=== PATIENT | female | born 1955 | race African-American/Black ===

== ENCOUNTER 2017-01-22 08:57 | Inpatient (IN) | payer MEDICARE ==
[2017-01-10 12:44] VITALS: BMI 41.5
--- NOTE | 2017-01-21 10:01 | HP ---
[facility] - Chief Complaint Chief Complaint: left knee pain - Past Medical History Allergies/Adverse Reactions: Allergies Allergy/AdvReac Type Severity Reaction Status Date / Time No Known Drug Allergies Allergy Verified 01/10/17 12:36 - Current Medications Current Medications: Home Medications Medication Instructions Recorded Amlodipine Besylate [Norvasc] 10 mg PO DAILY 02/01/13 Hydrochlorothiazide [Hctz] 25 mg PO ASDIR 02/01/13 Labetalol HCl [Normodyne] 100 mg PO BID 02/01/13 Clonazepam [KlonoPIN] 0.5 mg PO ASDIR PRN 12/04/16 Satellite Physical Exam - Physical Examination General Appearance: Well Nourished, Well Developed, Alert & Oriented x3 ENT: Clear Lung: Normal air movement Heart: Regular rate & rhythm Extremities: Other (left knee-+ sweling, + ttp ,dec rom ,nvi xrays show severe tricompartmental djd) Neurological: Intact, Alert, Oriented Satellite Impression/Plan - Impression/Plan Impression: left knee djd Operative Procedure: left meliton tkr Date to be Performed: 01/22/17
[2017-01-22] MEDS ORDERED: oxyCODONE HCL 10 MG SUSTAINED ACTING TABLET PO ONE (09:14)
[2017-01-22] MEDS ORDERED: CELECOXIB 200 MG CAPSULE PO ONE (09:14)
[2017-01-22] MEDS ORDERED: TRANEXAMIC ACID 1000 MG/10 ML VIAL IVPUSH ONE (09:14)
[2017-01-22] MEDS ORDERED: GABAPENTIN 300 MG CAPSULE (FP) PO ONE (09:14)
[2017-01-22] MEDS ORDERED: CEFAZOLIN 2 GM in DEXTROSE 5%-WATER - 50 ML IVPB ONE (09:14)
[2017-01-22] MEDS ORDERED: SODIUM CHLORIDE 0.9% P/F 10 ML VIAL IJ ONE (10:42)
[2017-01-22] MEDS ORDERED: BUPIVACAINE HCL/PF 0.5% (5MG/ML) 10 ML VIAL ONE (10:42)
[2017-01-22] MEDS ORDERED: MIDAZOLAM HCL 2 MG/2 ML SINGLE DOSE VIAL ONE (10:46)
[2017-01-22] MEDS ORDERED: ONDANSETRON 4 MG/2 ML VIAL IVPUSH PRN (13:38)
[2017-01-22] MEDS ORDERED: oxyCODONE HCL 5 MG TABLET PO PRN (13:38)
[2017-01-22] MEDS ORDERED: ACETAMINOPHEN 325 MG TABLET (FP) PO SCH (13:45)
[2017-01-22] MEDS ORDERED: LACTATED RINGERS SOLUTION 1,000 ML IV SCH ×2 (13:45→14:15)
[2017-01-22] MEDS ORDERED: MAGNESIUM HYDROX 2400MG/30ML ORAL SUSPENSION 30 ML CUP PO PRN (14:02)
[2017-01-22] MEDS ORDERED: MAG HYDROX/AL HYDROX/SIMETH 30 ML UNIT-DOSE CUP PO PRN (14:02)
[2017-01-22] MEDS ORDERED: ONDANSETRON 4 MG/2 ML VIAL IVPB PRN (14:02)
--- NOTE | 2017-01-22 14:05 | OP ---
Operative Note - Note: Operative Date: 01/22/17 (kristian) Pre-Operative Diagnosis: left knee djd Operation: left meliton tkr Post-Operative Diagnosis: Same as Pre-op Surgeon: Yuval Landaverde Group Home Manager: Roscoe Hermosillo Anesthesiologist/NUMERICAL CONTROL MACHINE TOOL OPERATOR: Arthur Romeo Anesthesia: Spinal, Local Specimens Removed: bone fragments Estimated Blood Loss (mls): 50 (tourniquet) Operative Report Dictated: Yes
[2017-01-22] MEDS ORDERED: HYDROCHLOROTHIAZIDE 25 MG TABLET (FP) PO SCH (14:15)
[2017-01-22] MEDS: oxyCODONE HCL 5 MG TABLET PO PRN ×2 (17:07→19:22)
[2017-01-22] MEDS: CEFAZOLIN 2 GM/D5W 50 ML IVPB SCH (20:41)
[2017-01-22] MEDS: LABETALOL HCL 100 MG TABLET (FP) PO SCH (21:17)
[2017-01-22] MEDS: oxyCODONE HCL 10 MG SUSTAINED ACTING TABLET PO SCH (21:17)
[2017-01-22] MEDS: SENNOSIDES/DOCUSATE COMBO (SENNA PLUS) TABLET (UD) PO SCH (21:17)
[2017-01-22] MEDS: GABAPENTIN 300 MG CAPSULE (FP) PO SCH (21:18)
[2017-01-22] MEDS: ACETAMINOPHEN 325 MG TABLET (FP) PO SCH (21:18)
[2017-01-22] MEDS: clonazePAM 0.5 MG TABLET PO PRN (21:18)
[2017-01-23] MEDS: CEFAZOLIN 2 GM/D5W 50 ML IVPB SCH (03:41)
[2017-01-23] MEDS: ACETAMINOPHEN 325 MG TABLET (FP) PO SCH ×4 (03:42→21:08)
[2017-01-23] MEDS: oxyCODONE HCL 5 MG TABLET PO PRN ×2 (05:00→21:05)
--- NOTE | 2017-01-23 08:13 | PN ---
Progress Note (short form) - Note Progress Note: Ortho Pt seen and examined s/p left meliton tkr pod #1 Selected Entries 01/23/17 05:50 Temperature 99.2 F Pulse Rate 104 H Respiratory 20 Rate Blood Pressure 145/54 dressing c/d/i, calf soft, nt rom 0-30, nvi cbc pending a/p PT dvt ppx pain control d/c home tomorrow if stable
[2017-01-23] MEDS: ASPIRIN 325 MG TABLET PO SCH (08:53)
[2017-01-23] MEDS: GABAPENTIN 300 MG CAPSULE (FP) PO SCH ×2 (09:27→21:06)
[2017-01-23] MEDS: amLODIPine BESYLATE 10 MG TABLET (FP) PO SCH (09:28)
[2017-01-23] MEDS: SENNOSIDES/DOCUSATE COMBO (SENNA PLUS) TABLET (UD) PO SCH ×2 (09:28→21:06)
[2017-01-23] MEDS: LABETALOL HCL 100 MG TABLET (FP) PO SCH ×2 (09:28→21:06)
[2017-01-23] MEDS: oxyCODONE HCL 10 MG SUSTAINED ACTING TABLET PO SCH ×2 (09:28→21:06)
[2017-01-23] MEDS: MULTIVITAMINS (DAILY MVI) TABLET (FP) PO SCH (10:00)
[2017-01-23] MEDS: PANTOPRAZOLE 40 MG TABLET (FP) PO SCH (10:53)
--- NOTE | 2017-01-23 11:01 | SPEC ---
DATE OF OPERATION: 01/22/2017 OPERATION: Left total knee replacement with robotic-assisted navigation (MAKOplasty). PREOPERATIVE DIAGNOSIS: Degenerative joint disease, left knee. POSTOPERATIVE DIAGNOSIS: Degenerative joint disease, left knee. SURGEON: Yuval Landaverde M.D. UROLOGY PHYSICIAN ASSISTANT: Fidelia Harrington ANESTHESIA: Regional and spinal. CLOSURE: A Triathlon knee system with a 3 femur, a 3 tibia, an 11 polyethylene, a 38 patella. A number 1 Vicryl fascia, 0 and 2-0 for subcutaneous, 3-0 Monocryl subcuticular with skin glue for skin, 4-0 undyed Vicryl for pin sites. ESTIMATED BLOOD LOSS: Negligible. TOURNIQUET TIME: Approximately 80 minutes. COMPLICATIONS: None CONDITION: To recovery room in stable condition. DESCRIPTION OF PROCEDURE: Patient was taken to the operating room on January 22, 2017. Regional and spinal anesthesia were administered by the anesthesiologist. IV antibiotics and TXA were administered prophylactically prior to the case. A well-padded pneumatic tourniquet was placed on the left proximal thigh. The left lower extremity was prepped and draped in the usual sterile fashion. An approximately 12-cm midline incision centered over the patella was incised. Hemostasis was achieved with Bovie cautery. Sharp dissection was carried down to the level of the extensor mechanism the procedure. The medial parapatellar arthrotomy was then performed. The patella was inverted and the knee was flexed up to 90 degrees. Subperiosteal dissection was performed on the anteromedial proximal tibia until the knee was able to be brought forward. This was facilitated by taking the ACL, the PCL, and the medial and lateral menisci. A checkpoint was malleted into the medial femoral condyle and into the anteromedial proximal tibia. Through two small stab incisions in the mid femur and two in the mid tibia, two bicortical pins were drilled, achieving excellent height. Two of these pins were attached to the navigation arrays. The knee was then registered with the navigation device by rotating the hip to ascertain the center of rotation of the hip with points on both the medial and lateral malleoli and multiple points on both the femur and on the tibia. Excellent registration was confirmed by "popping the bubbles". At this time, the osteophytes on the edges of the proximal tibia both medially and laterally, as well as on the medial lateral femoral condyles underneath the collateral ligaments were debrided. The knee was stressed in extension and in flexion to confirm good gaps. The virtual positions of the components were then optimized in order to have a balanced knee, both in extension and in 90 degrees of flexion. The sizes of the components were also optimized to get good coverage over both the tibia and the femur and to produce equal gaps in extension and flexion with the appropriate amount of external rotation of the femur, the appropriate amount of flexion of the femoral component and the appropriate slope on the tibial component. At this time, the robot was brought into the field and registered. The robot was used to cut the proximal tibia and to make all the cuts on the distal femur. The bone was then removed. A spacer block in extension and flexion was used to confirm equal balancing of the component in both extension and 90 degrees of flexion. The box for the posterior cruciate sacrificing component was then performed and a trial component on the femur and tibia was applied. The femoral component was clipped into place with the appropriate external rotation. This was confirmed by the navigation device, ensuring the appropriate position of the tibial component on the proximal tibia. The patella was calipered for thickness and osteotomized at the appropriate level. A lollipop was used to drill the three lugholes in the patella and then a trial component was applied. The knee was taken through a range of motion and found to have excellent tracking of the patella from full extension to full flexion, with good stability, varus/valgus throughout range of motion. The trial components were then removed. Before removing the tibial tray, the keyhole was made. The knee was then thoroughly irrigated with antibiotic irrigation. The real components were then cemented in, using modern generation cement techniques with antibiotic cement and pressurization. After the cement was hardened, the knee was thoroughly inspected to remove all excess cement. The real polyethylene component was then clipped into place. Again, range of motion, stability and tracking were found to be excellent throughout. The knee was then pulse antibiotic irrigated and dried. Vancomycin powder was placed into the knee. The checkpoints were removed. The medial parapatellar arthrotomy was then closed using number 1 Vicryl interrupted suture. The knee was again taken through range of motion and found to have no undue tension on the repair and good tracking throughout. The subcutaneous was closed with 0 and 2-0 Vicryl and 3-0 Monocryl subcuticular for skin with skin glue. The pins were removed in the femur and the tibia and pulse antibiotic irrigated and closed with 4-0 undyed Vicryl. Sterile Aquacel dressing followed by a [place] dressing was applied. The tourniquet was then deflated. One more dose of TXA was administered at the end of the case. The patient was awakened from anesthesia and transferred to the recovery room in stable condition. X-rays revealed good position of the components. There were no complications. Estimated blood loss was negligible. Total tourniquet time was approximately 80 minutes. Arlene [id number]
--- NOTE | 2017-01-23 12:08 | PN ---
Progress Note, Physician Chief Complaint: Pt. pain controlled with adductor canal block and oral pain meds. Full motor function of left lower extremity. No anesthesia complaints. - Current Medication List Current Medications: Active Medications Acetaminophen (Tylenol -) 650 mg PO Q6H PENDING SALE TO [facility] Stop: 01/25/17 13:44 Last Admin: 01/23/17 08:53 Dose: 650 mg Al Hydroxide/Mg Hydroxide (Mylanta Oral Suspension -) 30 ml PO Q4H PRN PRN Reason: DYSPEPSIA Amlodipine Besylate (Norvasc -) 10 mg PO DAILY PENDING SALE TO [facility] Last Admin: 01/23/17 09:28 Dose: 10 mg Aspirin (Asa -) 325 mg PO DAILY@0800 PENDING SALE TO [facility] Last Admin: 01/23/17 08:53 Dose: 325 mg Clonazepam (Klonopin -) 0.5 mg PO ASDIR PRN PRN Reason: TREMORS Last Admin: 01/22/17 21:18 Dose: 0.5 mg Fentanyl (Sublimaze Injection -) 50 mcg IVPUSH [id number] PRN PRN Reason: PAIN Stop: 01/25/17 13:39 Gabapentin (Neurontin -) 300 mg PO BID PENDING SALE TO [facility] Last Admin: 01/23/17 09:27 Dose: 300 mg Hydrochlorothiazide (Hctz -) 25 mg PO ASDIR PENDING SALE TO [facility] Last Admin: 01/22/17 17:44 Dose: Not Given Lactated Ringer's (Lactated Ringers Solution) 1,000 mls @ 125 mls/hr IV ASDIR PENDING SALE TO [facility] Last Admin: 01/22/17 17:44 Dose: Not Given Labetalol HCl (Normodyne -) 100 mg PO BID PENDING SALE TO [facility] Last Admin: 01/23/17 09:28 Dose: 100 mg Magnesium Hydroxide (Milk Of Magnesia -) 30 ml PO PRN PRN PRN Reason: CONSTIPATION Multivitamins/Minerals/Vitamin C (Tab-A-Vit -) 1 tab PO DAILY PENDING SALE TO [facility] Ondansetron HCl (Zofran Injection) 4 mg IVPB Q6H PRN PRN Reason: NAUSEA Oxycodone HCl (Oxycontin -) 10 mg PO BID PENDING SALE TO [facility] Stop: 01/25/17 13:39 Last Admin: 01/23/17 09:28 Dose: 10 mg Oxycodone HCl (Roxicodone -) 5 mg PO Q3H PRN PRN Reason: PAIN LEVEL 1-5 Oxycodone HCl (Roxicodone -) 10 mg PO Q3H PRN PRN Reason: PAIN LEVEL 6-10 Last Admin: 01/23/17 05:00 Dose: 10 mg Pantoprazole Sodium (Protonix -) 40 mg PO DAILY PENDING SALE TO [facility] Senna/Docusate Sodium (Pericolace -) 2 tablet PO BID [facility] Last Admin: 01/23/17 09:28 Dose: 2 tablet - Objective Vital Signs: Vital Signs Temperature 99.2 F 01/23/17 05:50 Pulse Rate 104 H 01/23/17 05:50 Respiratory Rate 20 01/23/17 05:50 Blood Pressure 145/54 01/23/17 05:50 O2 Sat by Pulse Oximetry (%) 98 01/23/17 05:50 Constitutional: Yes: Well Nourished, No Distress, Calm Musculoskeletal: Yes: WNL Neurological: Yes: WNL, Alert, Oriented Assessment/Plan POD#1 s/p Left total knee replacement under spinal. Doing well. D/C from anesthesia care.
[2017-01-23] MEDS: clonazePAM 0.5 MG TABLET PO PRN (13:54)
[2017-01-24] MEDS: oxyCODONE HCL 5 MG TABLET PO PRN (05:49)
[2017-01-24] MEDS: ACETAMINOPHEN 325 MG TABLET (FP) PO SCH ×2 (05:50→10:23)
[2017-01-24 06:10] VITALS: TEMP 98.4
[2017-01-24] MEDS: ASPIRIN 325 MG TABLET PO SCH (07:51)
[2017-01-24 08:30] LABS: MCH 31.3 pg (25.7-33.7); MCHC 33.5 g/dl (32.0-36.0); MEAN CELL VOLUME 93.2 fl (80-96); MEAN PLT VOLUME 9.6 fl (7.5-11.1); PLATELET COUNT 198 K/MM3 (134-434); RDW 13.2 % (11.6-15.6); WHITE BLOOD COUNT 13.2 K/mm3 (4.0-10.8)
--- NOTE | 2017-01-24 08:34 | PN ---
Progress Note (short form) - Note Progress Note: Ortho Pt seen and examined s/p left meliton tkr pod #2 Selected Entries 01/24/17 06:00 Temperature 98.4 F Pulse Rate 88 Respiratory 19 Rate Blood Pressure 120/46 Laboratory Tests 01/24/17 08:11 WBC Pending Hgb Pending Hct Pending Plt Count Pending dressing c/d/i, calf soft, nt rom 0-30, nvi a/p PT dvt ppx pain control d/c home today f/u in 1 week
--- NOTE | 2017-01-24 08:35 | DS ---
Physical Examination Vital Signs: Vital Signs Temperature 98.4 F 01/24/17 06:00 Pulse Rate 88 01/24/17 06:00 Respiratory Rate 19 01/24/17 08:23 Blood Pressure 120/46 01/24/17 06:00 O2 Sat by Pulse Oximetry (%) 96 01/24/17 08:23 Discharge Summary Reason For Visit: OSTEOARTHRITIS Procedures: Principal: s/p left meliton tkr Hospital Course: admitted for elective left meliton tkr, uneventful post-op, stable for d/c Condition: Good - Instructions Diet, Activity, Other Instructions: Post-op Instructions-Total Knee Replacement Call the office for a follow-up appointment in 1 week - [phone] Aspirin 325mg daily for 6 weeks. Pain medication was sent into your pharmacy. Apply Graduated Compression Stockings (TEDs) to both lower extremities- remove daily for hygiene ONLY Apply Sequential Compression Device (SCDs) to both Lower extremities remove for PT and hygiene ONLY Apply cold packs to affected area for 15 minutes every 2 hours. Physical Therapist will come to your home for the first 5 days. You will be set up with outpatient PT at your first post-operative visit. Patient may ambulate as tolerated-encourage self care (at least every 2-3 hours while awake) with walker or cane Maintain Aquacel (waterproof) dressing to operative wound (will be removed by surgeon at first office visit) Shower with Aquacel dressing in place-if Aquacel integrity compromised, remove and apply dry sterile dressing and notify Orthopedist. DO NOT SHOWER unless Orthopedists approves without Aquacel dressing CONTACT THE OFFICE FOR ANY CHANGE IN YOUR CONDITION (for example-fever greater than 102 degrees,excessive bleeding from operative site, purulent drainage, severe swelling or pain) GO TO THE EMERGENCY ROOM IF THERE IS A MEDICAL EMERGENCY Knee Precautions: * Keep a rolled towel under affected heel while in bed or chair (to keep knee in extension) * Keep affected leg elevated except during mealtimes * DO NOT PLACE PILLOW UNDER AFFECTED KNEE * If you have any questions, please do not hesitate to call the office - . Referrals: Yuval Landaverde MD [Staff Physician] - Disposition: VNS/HOME HEALTH CARE - Home Medications Comprehensive Discharge Medication List: Ambulatory Orders Amlodipine Besylate [Norvasc -] 10 mg PO DAILY 02/01/13 Hydrochlorothiazide [Hctz -] 25 mg PO ASDIR 02/01/13 Labetalol HCl [Normodyne -] 100 mg PO BID 02/01/13 Clonazepam [KlonoPIN] 0.5 mg PO ASDIR PRN 12/04/16 Aspirin [ASA -] 325 mg PO DAILY@0800 tablet 01/22/17 Oxycodone HCl/Acetaminophen [Percocet 5-325 mg Tablet -] 1 - 2 tab PO Q6H #50 tab MDD 8 01/22/17
[2017-01-24] MEDS: oxyCODONE HCL 10 MG SUSTAINED ACTING TABLET PO SCH (10:14)
[2017-01-24] MEDS: GABAPENTIN 300 MG CAPSULE (FP) PO SCH (10:15)
[2017-01-24] MEDS: LABETALOL HCL 100 MG TABLET (FP) PO SCH ×2 (10:17→12:29)
[2017-01-24] MEDS: MULTIVITAMINS (DAILY MVI) TABLET (FP) PO SCH (10:17)
[2017-01-24] MEDS: amLODIPine BESYLATE 10 MG TABLET (FP) PO SCH ×2 (10:17→12:28)
[2017-01-24] MEDS: PANTOPRAZOLE 40 MG TABLET (FP) PO SCH (10:17)
[2017-01-24] MEDS: SENNOSIDES/DOCUSATE COMBO (SENNA PLUS) TABLET (UD) PO SCH (10:17)
[2017-01-24 12:17] VITALS: BP 125/75; PULSE 90
--- NOTE | 2017-01-24 15:31 | PATH ---
Surgical Pathology Report Patient Name: ALBANIA RUSSO Med. Rec. #: [id number] /Age/Gender: 1955 (Age: 61) / F Account: [id number] Location: [facility] Taken: 01/23/2017 Received: 01/23/2017 Reported: 01/24/2017 Physicians: Yuval Landaverde M.D. Specimen(s) Received LEFT KNEE BONES Clinical History Osteoarthritis Final Diagnosis BONE AND SOFT TISSUE, LEFT KNEE, REPLACEMENT: DEGENERATIVE JOINT DISEASE. Electronically Signed David Galdamez M.D. Gross Description Received in formalin labeled "left knee bones," is a 13.0 x 12.5 x 2.5 cm aggregate of multiple irregular portions of bone and soft tissue. The tibial plateau measures 7.2 x 5.4 x 1.6 cm. There is a 2.8 cm in greatest dimension area of eburnation present. The remaining articular surfaces are meade-yellow and focally granular. The underlying trabecular bone is yellow and hard. Costume Seamstress sections are submitted in one cassette, following decalcification. /01/23/2017 [facility]01/23/2017
== END 2017-01-24 13:11 | DRG 470 ==
LOC: FM/S 08:57
PROVIDERS: ADMIT Orthopaedic Surgery; ATTEND Orthopaedic Surgery
PROC: 8E0Y0CZ Robotic Assisted Procedure of Lower Extremity, Open Approach (ICD-10-PCS; 2017-01-22)
PROC: 0SRD0J9 Replacement of Left Knee Joint with Synthetic Substitute, Cemented, Open Approach (ICD-10-PCS; principal; 2017-01-22 12:19)
DX: M17.12 Unilateral primary osteoarthritis, left knee (principal); Z68.41 Body mass index [BMI] 40.0-44.9, adult; I10 Essential (primary) hypertension; E11.9 Type 2 diabetes mellitus without complications; E78.5 Hyperlipidemia, unspecified; Z95.5 Presence of coronary angioplasty implant and graft; K21.9 Gastro-esophageal reflux disease without esophagitis; E66.01 Morbid (severe) obesity due to excess calories
CPT/HCPCS: 36415; 73560-TC-LT; 85027; 88305-TC; 88311-TC; 94010; 94760; 97116-GP; 97163-GP

== ENCOUNTER 2017-08-04 06:28 | Emergency (ER) | payer MEDICARE ==
[2017-08-04 07:00] VITALS: BMI 41.5
--- NOTE | 2017-08-04 07:17 | PDOC ---
Attending Attestation - Resident Resident Name: Arben Andre - HPI HPI: 08/04/17 08:26 pt presents to the ED complaining of a 4 day history of constant palpitations. No alleviating or aggravating factors. No chest pain, but does complain of mild shortness of breath. Palpitations are moderate in severity, but patient has become alarmed because they have been persistent for 4 days, so she presented to the ED. Has a longstanding history of palpitations, but they usually resolve within a few hours. - Physicial Exam PE: 08/04/17 08:33 Agree with resident exam. Patient is well appearing. No tachycardia on cardiac exam. - Medical Decision Making 08/04/17 08:35 Pt presents to the eD complaining of constant palpitations. Denies chest pain or shortness of breath. EKG shows sinus tachycardia. Will check labs and reassess.
--- NOTE | 2017-08-04 07:26 | PDOC ---
History of Present Illness - General Chief Complaint: Palpitations Stated Complaint: PALPITATION Time Seen by Provider: 08/04/17 07:15 - History of Present Illness Initial Comments: 08/04/17 07:47 The patient is a 61 year old female with a history of HTN, essential tremor and palpitations who presents for evaluation of palpitations. The patient reports a 4 day history of a constant sensation of palpitations. She states that she has had palpitations in the past, but it has never last this long prompting her presentation to the ED for evaluation. She notes that she normally takes her labetalol for her palpitations with resolution in her symptoms, although that has not been the case over the past 4 days. She denies fevers, chills, chest pain, SOB, abdominal pain, nausea, vomiting, or changes with urination or bowel movements. Past History - Past Medical History Allergies/Adverse Reactions: Allergies Allergy/AdvReac Type Severity Reaction Status Date / Time No Known Drug Allergies Allergy Verified 06/07/17 16:06 Home Medications: Ambulatory Orders Amlodipine Besylate [Norvasc -] 10 mg PO DAILY 02/01/13 Hydrochlorothiazide [Hctz -] 25 mg PO ASDIR 02/01/13 Labetalol HCl [Normodyne -] 100 mg PO BID 02/01/13 Baclofen 10 mg PO DAILY 08/04/17 Meloxicam 15 mg PO DAILY 08/04/17 Anemia: No Asthma: No Cancer: No Cardiac Disorders: Yes (H/O TACHYCARDIA,SOB,ABN EKG,HTN-HAD STRESS TEST---CARD CATH --NORMAL 2012) CVA: No COPD: No CHF: No Dementia: No Diabetes: No (BORDERLINE) GI Disorders: Yes (H/O STOMACH ULCER) Disorders: No HTN: Yes Hypercholesterolemia: No (BORDERLINE) Liver Disease: No Seizures: No Thyroid Disease: No - Surgical History Abdominal Surgery: No Appendectomy: No Cardiac Surgery: Yes (PT HAD POS STRESS TESTCARDIAC CATH-2012 NORMAL) Cholecystectomy: No Lung Surgery: No Neurologic Surgery: No Orthopedic Surgery: No - Suicide/Smoking/Psychosocial Hx Smoking Status: No Smoking History: Never smoked Have you smoked in the past 12 months: No Number of Cigarettes Smoked Daily: 0 Hx Alcohol Use: No Drug/Substance Use Hx: No Substance Use Type: None Hx Substance Use Treatment: No Review of Systems - Review of Systems Comments:: 08/04/17 07:49 Constitutional: No fevers, chills, fatigue, malaise HEENT: No Rhinorrhea, nasal congestion, visual changes Cardiovascular: Palpitations. No chest pain, syncope, lightheadedness Respiratory: No Cough, SOB, Hemoptysis, Gastrointestinal: No Abdominal pain, Nausea, Vomiting, Constipation, Diarrhea, Genitourinary: No Dysuria, Frequency, Urgency, Hesitancy, Hematuria, Flank pain Musculoskeletal: No Myalgia, arthralgia Skin: No rashes, bruising, pallor Neurologic: No Headache, Dizziness, Numbness, Weakness, or Tingling Psychiatric: No Hallucinations. No SI or HI *Physical Exam - Vital Signs Last Vital Signs Temp Pulse Resp BP Pulse Ox 98.3 F 72 18 142/96 99 08/04/17 06:56 08/04/17 06:56 08/04/17 06:56 08/04/17 06:56 08/04/17 06:56 - Physical Exam Comments: 08/04/17 07:50 General Appearance: Nourished. No Apparent Distress HEENT: EOMI, KELLY. No Pharyngeal Erythema, Tonsillar Exudate, Tonsillar Erythema Neck: No Cervical Lymphadenopathy Respiratory/Chest: Lungs Clear, Normal Breath Sounds. No Crackles, Rales, Rhonchi, Wheezing Cardiovascular: Regular Rhythm, Regular Rate. No Murmur, Gallops, Rubs Gastrointestinal/Abdominal: Normal Bowel Sounds, Soft. No Guarding, Rebound, Tenderness Musculoskeletal: No CVA Tenderness Extremity: Normal Capillary Refill Integumentary: Normal Color, Dry, Warm Neurologic: Fully Oriented, Alert, Normal Mood/Affect, Normal Response, Heart Score/ECG Review #1 ECG reviewed & interpreted by me at: 07:52 General ECG Interpretation: Sinus Rhythm, Normal Rate, Normal Intervals, No acute ischemic changes Compared to previous ECG there are: No significant change (02/01/13) ED Treatment Course - LABORATORY CBC & Chemistry Diagram: 08/04/17 07:54 08/04/17 07:54 Medical Decision Making - Medical Decision Making 08/04/17 07:50 The patient is a 61 year old female with a history of HTN, essential tremor and palpitations who presents for evaluation of palpitations. Differential includes but is not limited to: ACS, arrhythmia, PVC, infectious, metabolic derangement. Given her normal physical exam, it is likely her symptoms are due to her normal palpitations and unlikely to be due to ACS at this time. However , we will obtain a cbc, cmp, troponin, ekg, TSH to evaluate for other etiologies of her symptoms. We will continue to monitor and reassess. 08/04/17 09:48 CBC, cmp, troponin, tsh were unremarkable. EKG was unremarkable. It is likely her symptoms are due to her pre-existing palpitations. We are comfortable discharging the patient home at this time with Primary care provider follow up. We discussed the results and the plan with the patient who voiced understanding and is agreeable with the plan. *DC/Admit/Observation/Transfer Diagnosis at time of Disposition: Palpitations - Discharge Dispostion Disposition: HOME Condition at time of disposition: Improved Admit: No - Referrals Referrals: Brandyn Hernandez MD [Primary Care Provider] - - Patient Instructions Printed Discharge Instructions: DI for Palpitations Additional Instructions: Please return to the ER if you experience concerning or worsening symptoms including chest pain, Difficulty breathing, or fevers. You were seen in the ER for palpitations. Your lab results and EKG were normal here in the ED. Your symptoms are likely due to your high blood pressure and existing palpitations. Please call to schedule a follow up appointment within 1 week with your manager practice and primary care provider to discuss further management of your symptoms. - Post Discharge Activity
[2017-08-04 08:16] LABS: BASO % 0.8 % (0-2.0); EOS % 2.7 % (0-4.5); HEMATOCRIT 34.9 % (32.4-45.2); HEMOGLOBIN 11.1 GM/dL (10.7-15.3); LYMPH % 37.4 % (8-40); MCH 29.8 pg (25.7-33.7); MCHC 31.8 g/dl (32.0-36.0); MEAN CELL VOLUME 93.6 fl (80-96); MEAN PLT VOLUME 8.7 fl (7.5-11.1); MONO % 6.8 % (3.8-10.2); NEUT % 52.3 % (42.8-82.8); PLATELET COUNT 263 K/MM3 (134-434); RBC 3.73 M/mm3 (3.60-5.2); RDW 14.4 % (11.6-15.6); WHITE BLOOD COUNT 6.4 K/mm3 (4.0-10.0)
[2017-08-04 08:46] LABS: ALBUMIN 3.7 g/dl (3.4-5.0); ANION GAP 6 (8-16); BILIRUBIN,TOTAL 0.4 mg/dL (0.2-1.0); BLOOD UREA NITROGEN 15 mg/dL (7-18); CALCIUM 8.8 mg/dL (8.5-10.1); CHLORIDE 103 mmol/L (98-107); CO2 31 mmol/L (21-32); CREATININE 0.8 mg/dL (0.55-1.02); GLUCOSE,RANDOM 126 mg/dL (74-106); POTASSIUM 4.2 mmol/L (3.5-5.1); SGOT/AST 6 U/L (15-37); SGPT/ALT 20 U/L (12-78); SODIUM 140 mmol/L (136-145); TOT PROT 7.4 g/dl (6.4-8.2)
[2017-08-04 08:49] LABS: ALK PHOS 105 U/L (45-117)
[2017-08-04 10:01] VITALS: BP 137/78; PULSE 64; TEMP 98.4
--- NOTE | 2017-08-04 10:25 | EKG ---
Test Reason : Blood Pressure : / mmHG Vent. Rate : 064 BPM Atrial Rate : 064 BPM P-R Int : 186 ms QRS Dur : 086 ms QT Int : 414 ms P-R-T Axes : 052 -37 005 degrees QTc Int : 427 ms NORMAL SINUS RHYTHM LEFT AXIS DEVIATION VOLTAGE CRITERIA FOR LEFT VENTRICULAR HYPERTROPHY ABNORMAL ECG WHEN COMPARED WITH ECG OF 01-FEB-2013 22:01, NO SIGNIFICANT CHANGE WAS FOUND BASELINE ARTIFACT Confirmed by LJ KING, DENIZ ([id number]) on 08/04/2017 10:25:05 AM Referred By: Confirmed By:DENIZ CALHOUN MD
== END 2017-08-04 10:01 | disposition home or self-care (01) ==
LOC: JER 06:28
DX: R00.2 Palpitations (principal); I10 Essential (primary) hypertension; Z98.61 Coronary angioplasty status
CPT/HCPCS: 36415; 80053; 82550; 84443; 84484; 85025; 93005; 93010; 99284-25